=== PATIENT | female | born 1990 | race Caucasian/White ===

== ENCOUNTER → 2018-04-04 10:20 | Outpatient (CLI) | payer MEDICAID, SELFPAY ==
[2018-04-04 14:14] LABS: hCG Titer Quant., Serum 864 mIU/mL (<9 non-preg)
[2018-04-04 16:55] LABS: Chlamydia Trachomatis by PCR Negative (Negative); Neisserai gonorrhoeae by PCR Negative (Negative); Probe Check PASS; Sample Adequacy Control PASS; Specimen Processing Control PASS
[2018-04-11 09:37] LABS: HPV HC, High Risk Negative (Negative); HPV Reflexed? YES, CHARGE PATIENT
== END ==
PROVIDERS: Visit Provider Obstetrics & Gynecology
DX: Z32.01 Encounter for pregnancy test, result positive (principal); Z11.3 Encounter for screening for infections with a predominantly sexual mode of transmission; Z12.4 Encounter for screening for malignant neoplasm of cervix
CPT/HCPCS: 36415; 84702; 87491; 87591; 87624; 88175; G0145

== ENCOUNTER → 2018-04-07 09:56 | Outpatient (CLI) | payer MEDICAID, SELFPAY ==
[2018-04-07 15:42] LABS: hCG Titer Quant., Serum 2545 mIU/mL (<9 non-preg)
== END ==
PROVIDERS: Visit Provider Obstetrics & Gynecology
DX: Z32.01 Encounter for pregnancy test, result positive (principal)
CPT/HCPCS: 36415; 84702

== ENCOUNTER → 2018-04-19 10:25 | Outpatient (CLI) | payer MEDICAID, SELFPAY ==
[2018-04-19 12:33] LABS: Absolute Lymphocyte Count 1.85 X10^3/ul (0.83-4.51); Absolute Neutrophil Count 5.8 X10^3/uL (2.0-7.7); Basophil# 0.01 X10^3/uL; Basophil% 0.1 % (0-1); Eosinophil# 0.05 X10^3/uL; Eosinophils% 0.6 % (0-5); Hematocrit 39.3 % (37-47); Hemoglobin 12.9 g/dl (12.0-15.0); Lymphocyte # 1.85 X10^3/ul (4.0); Lymphocyte % 22.1 % (19-41); Mean Corp Hgb Conc 32.8 g/gl (32-36); Mean Corpuscular Hgb 30.6 pg (27.0-32.0); Mean Corpuscular Volume 93.3 fL (81-99); Monocyte% 7.2 % (0-10); Neutrophil # 5.84 X10^3/uL (2.7-7.7); Neutrophil % 69.8 % (47-70); Platelet Count 256 K/mm3 (150-450); RBC Distribution Width CV 12.1 % (11.6-14.6); RBC Distribution Width SD 40.6 fl (35.1-43.9); Red Blood Count 4.21 M/mm3 (4.2-5.4); White Blood Count 8.4 K/mm3 (4.4-11.0)
[2018-04-19 12:37] LABS: Amphetamine Urine VISTA NEGATIVE (<1000 ng/mL); Barbiturate Urine VISTA NEGATIVE (< 200 ng/mL); Benzodiazepine Urine VISTA NEGATIVE (< 200 ng/mL); Cocaine Urine VISTA NEGATIVE (< 300 ng/mL); Ecstacy Urine VISTA NEGATIVE (< 500 ng/mL); Methadone Urine VISTA NEGATIVE (< 300 ng/mL); PCP Urine VISTA NEGATIVE (< 25 ng/mL); THC Urine VISTA NEGATIVE (< 50 ng/mL); Vista UDS pH Range 6
[2018-04-19 12:38] LABS: Color, Urine Yellow (Yellow); Glucose, Dipstick Normal (Normal); Ketone-Dipstick Negative (Negative); Leukocyte Esterase-Dipstick 25 /ul (Negative); Nitrite-Dipstick Negative (Negative); Occult Blood-Urine 50 /ul (Negative); Protein-Dipstick Negative (Negative); Urine Bilirubin Dipstick Negative (Negative); Urine Clarity Sl. Cloudy (Clear); Urine Urobilinogen Normal (Normal)
[2018-04-19 12:40] LABS: POSITIVE COUNT NO; POSITIVE DIFFERENTIAL NO; POSITIVE MORPHOLOGY NO
[2018-04-19 12:45] LABS: COTININE Drug Screen Positive (<200 ng/mL)
[2018-04-19 12:59] LABS: Thyroid Stim Hormone (TSH) 0.79 uIU/mL (0.358-3.74)
[2018-04-19 13:36] LABS: HIV - WCH Non-Reactive (Nonreactive); Rubella IgG 5.2 IU/mL
[2018-04-21 02:03] LABS: Prenatal RPR NONREACTIVE (NONREACTIVE)
[2018-04-24 16:17] LABS: HEPATITIS B SURFACE AG Negative (Negative); Hep C Antibodies <0.1 s/co ratio (0.0-0.9); V-Zoster IgG (Immunity) 170 index (Immune >165)
== END ==
PROVIDERS: Visit Provider Obstetrics & Gynecology
DX: Z34.81 Encounter for supervision of other normal pregnancy, first trimester (principal)
CPT/HCPCS: 36415; 80307; 81002; 84443; 85025; 86703; 86762; 86787; 86803; 87340

== ENCOUNTER → 2018-09-13 | Outpatient (CLI) | payer MEDICAID, SELFPAY ==
[2018-09-13 10:46] LABS: Hematocrit 34.4 % (37-47); Hemoglobin 11.4 g/dl (12.0-15.0); Mean Corp Hgb Conc 33.1 g/gl (32-36); Mean Corpuscular Hgb 29.7 pg (27.0-32.0); Mean Corpuscular Volume 89.6 fL (81-99); Mean Platelet Vol. 11.9 fl (6.2-12.0); Platelet Count 209 K/mm3 (150-450); RBC Distribution Width CV 13.8 % (11.6-14.6); RBC Distribution Width SD 44.7 fl (35.1-43.9); Red Blood Count 3.84 M/mm3 (4.2-5.4); White Blood Count 9.7 K/mm3 (4.4-11.0)
[2018-09-13 10:48] LABS: Glucose Challenge Gest 1H 50g 93 mg/dL (70-140)
[2018-09-13 11:05] LABS: Scan Indicated on CBC? Y/N NO
== END | disposition home or self-care (01) ==
PROVIDERS: Visit Provider Obstetrics & Gynecology
DX: Z34.82 Encounter for supervision of other normal pregnancy, second trimester (principal)
CPT/HCPCS: 36415; 82950; 85027

== ENCOUNTER 2018-10-25 18:05 | Emergency (ER) | payer MEDICAID, SELFPAY ==
[2018-10-25 18:05] VITALS: BP 121/73; PULSE 103; RESP 16; TEMP 36.6; O2SAT 97; BMI 34.0
--- NOTE | 2018-10-25 18:48 | CT_ITS ---
STUDY: CTA NECK WITH CONTRAST REASON FOR EXAM: Female, 28 years old. Right-sided jaw pain. RADIATION DOSAGE (If Supplied By Facility): CTDIvol = ( 32.24 ) mGy, DLP = ( 1432.13 ) mGycm TECHNIQUE: CT angiography with multi-detector data acquisition was performed from the aortic arch to the skull base following intravenous administration of 75ML IV Isovue 370. MIP images were reconstructed from the axial data set. Post-processing of the angiographic images was performed, with multiplanar reformation and 3D reconstruction. Individualized dose optimization techniques were used for this CT. COMPARISON: None. FINDINGS: AORTIC ARCH: Normal visualized aortic arch. Normal origins of the brachiocephalic, left common carotid, and left subclavian arteries. RIGHT CAROTID ARTERIES: Normal right common carotid artery (CCA). Normal right common carotid bulb. Normal origin of the right internal carotid (ICA) artery without a hemodynamically significant stenosis. Normal visualized cervical portion of the right internal carotid artery. Normal origin of the right external carotid artery (ECA). LEFT CAROTID ARTERIES: Normal left common carotid artery (CCA). Normal left common carotid bulb. Normal origin of the left internal carotid (ICA) artery without a hemodynamically significant stenosis. Normal visualized cervical portion of the left internal carotid artery. Normal origin of the left external carotid artery (ECA). VERTEBRAL ARTERIES: Normal bilateral vertebral arteries. There is partial opacification of the right maxillary sinus. There is opacification of the sphenoid sinuses, more pronounced on the right. There is partial opacification of the visualized ethmoid sinuses. CT/CTA Neck W/WO Contrast IMPRESSION: Within normal limits bilateral cervical carotid and vertebral arteries. Partial opacification of the right maxillary, sphenoid and ethmoid sinuses, most pronounced within the right sphenoid sinus consistent with a history of sinusitis. Electronically Signed: Lizzy Crowe MD at 19:52 EDT Tel , Service support ,
--- NOTE | 2018-10-25 18:48 | CT_ITS ---
STUDY: CTA OF THE BRAIN REASON FOR EXAM: Female, 28 years old. Headache x3 days, right-sided jaw pain. RADIATION DOSAGE (If Supplied By Facility): CTDIvol = ( 32.24 ) mGy, DLP = ( 1432.13 ) mGycm TECHNIQUE: CT angiography was performed with a multi-detector CT scanner. Data acquisition was obtained from the skull base through the vertex following intravenous administration of 75ML IV Isovue 370. MIP images were reconstructed from the axial data set. Post-processing of the angiographic images was performed, with multiplanar reformation and 3D reconstruction. Individualized dose optimization techniques were used for this CT. COMPARISON: None. FINDINGS: Normal bilateral petrous carotid arteries. Normal right cavernous carotid artery with a normal supraclinoid bifurcation. Normal left cavernous carotid artery with a normal supraclinoid bifurcation. Normal A1 segment of the right anterior cerebral artery. Normal A1 segment of the left anterior cerebral artery. Normal intact anterior communicating artery (ACOM). Normal bilateral A2 segments of the anterior cerebral arteries. Normal M1 and M2 segments of the right middle cerebral artery, with a normal M1 bifurcation. Normal M1 and M2 segments of the left middle cerebral artery, with a normal M1 bifurcation. Normal right posterior communicating artery (PCOM). Normal left posterior communicating artery (PCOM). Normal bilateral vertebral arteries. Normal basilar artery with a normal basilar bifurcation. The visualized bilateral superior cerebellar (SCA) arteries are normal. Normal P1, P2 and visualized P3 segments of the bilateral posterior cerebral arteries. There is no demonstrated aneurysm of the [place]. There is no demonstrated abnormality of the visualized brain. CT/CTA Head W/WO Contrast IMPRESSION: Normal [place] without a demonstrated aneurysm or hemodynamically significant stenosis. Electronically Signed: Gerson Baze MD at 20:05 EDT , Service support ,
[2018-10-25 19:07] LABS: Mucous, Urine 0 SEEN /hpf (<or=2+); Red Blood Cells-Urine 0 SEEN /hpf (0-5); White Blood Cells 0 SEEN /hpf (0-5)
[2018-10-25 19:15] LABS: Color, Urine Yellow (Yellow); Glucose, Dipstick Normal (Normal); Ketone-Dipstick Negative (Negative); Leukocyte Esterase-Dipstick Negative /ul (Negative); Nitrite-Dipstick Negative (Negative); Occult Blood-Urine Negative /ul (Negative); Protein-Dipstick Negative (Negative); Urine Bilirubin Dipstick Negative (Negative); Urine Clarity Clear (Clear); Urine Urobilinogen Normal (Normal)
[2018-10-25] MEDS: 0.9% Normal Saline 1,000 ML 1000 ML IV (19:16)
[2018-10-25] MEDS: DiphenhydrAMINE 50 MG/ML Syringe 25 MG IV (19:17)
[2018-10-25] MEDS: Metoclopramide 10 MG/2 ML Vial IV (19:17)
[2018-10-25 19:23] LABS: Bacteria RARE /hpf (None Seen); Squamous Epithelial Cells - UA 0-5 SEEN /hpf (5-10)
[2018-10-25 19:24] LABS: Absolute Lymphocyte Count 2.12 X10^3/ul (0.83-4.51); Absolute Neutrophil Count 8.4 X10^3/uL (2.0-7.7); Basophil# 0.01 X10^3/uL; Basophil% 0.1 % (0-1); Eosinophil# 0.04 X10^3/uL; Eosinophils% 0.3 % (0-5); Hematocrit 38.6 % (37-47); Hemoglobin 12.5 g/dl (12.0-15.0); Lymphocyte # 2.12 X10^3/ul (4.0); Lymphocyte % 18.5 % (19-41); Mean Corp Hgb Conc 32.4 g/gl (32-36); Mean Corpuscular Hgb 28.5 pg (27.0-32.0); Mean Corpuscular Volume 87.9 fL (81-99); Mean Platelet Vol. 12.3 fl (6.2-12.0); Monocyte# 0.89 X10^3/uL; Monocyte% 7.8 % (0-10); Neutrophil # 8.37 X10^3/uL (2.7-7.7); Platelet Count 191 K/mm3 (150-450); RBC Distribution Width CV 13.7 % (11.6-14.6); RBC Distribution Width SD 43.1 fl (35.1-43.9); Red Blood Count 4.39 M/mm3 (4.2-5.4); White Blood Count 11.5 K/mm3 (4.4-11.0)
[2018-10-25 19:27] LABS: POSITIVE COUNT NO; POSITIVE DIFFERENTIAL NO; POSITIVE MORPHOLOGY NO
[2018-10-25 19:40] LABS: Anion Gap 8 (5-15); BUN 6 mg/dL (7-18); BUN/Creat Ratio 11.2 RATIO (10-20); Calcium,Total 8.5 mg/dL (8.5-10.1); Chloride 105 mmol/L (98-107); Creatinine, Serum 0.54 mg/dL (0.55-1.02); EST Glomerular Filtration Rate 146 mL/min (>60); Est Glom Filt Rate - Afr Amer 176 mL/min (>60); Glucose 86 mg/dL (74-106); Potassium 3.6 mmol/L (3.5-5.1); Sodium Level 138 mmol/L (136-145)
[2018-10-25 20:49] VITALS: BP 111/68; PULSE 81; RESP 16; O2SAT 98
--- NOTE | 2018-10-25 21:15 | ED.RN ---
NEUROLOGY PAGED FOR DR WHITE
--- NOTE | 2018-10-25 21:31 | MRI_ITS ---
HISTORY: SEVERE MENDEZ x 3 days, 33 weeks EXAMINATION: MRV Head W/O Contrast TECHNIQUE: Routine non-contrast Bzqy-qn-nyeqal MRV angiogram protocol was performed without gadolinium. 3D reconstructions were obtained. IV Contrast dosage and agent: None. COMPARISON: CTA brain 10/25/2018 FINDINGS: Normal flow related signal within the dural venous sinuses. Normal patency of the sinuses and normal bilateral jugular drainage MRI/MRV Head Without Contrast IMPRESSION: Normal examination. No evidence of dural sinus thrombosis. at 0103 Reported and signed by: Ranjeet Cope MD Electronically Signed: Ranjeet Cope, at 1:02 EDT Tel , Service support ,
--- NOTE | 2018-10-25 21:33 | ED.VISSUMM ---
- ER Visit Summary Date of Service: 10/25/18 Chief Complaint: [Headache] History of Present Illness: The patient is a 28 F [presents the emergency room with complaint of a headache that started 3 days ago. Patient states the headache came on suddenly. She rates it a 10 out of 10. She is had nausea but no vomiting. Yesterday she had a stiff neck and had a hard time moving her neck around. Today the neck is feeling better. Patient also states at times her right jaw hurts. Patient is 33 weeks . She denies any fever or recent illness. She denies urinary symptoms. Patient was seen by nursing staff and her PER ASSESSMENT NURSE's office yesterday and they checked the baby and they have all seemed fine. Patient is still feeling the baby move. She denies any swelling in her legs out of the ordinary. She denies any visual changes. She has not had photophobia. Loud sounds do bother her. She does not have a history of headaches or migraines. No medical history otherwise.] Physical Examination: [HEENT-PERRLA, EOMI. Cranial nerves II through XII grossly intact. TMs clear. Mucous membranes moist. No adenopathy. Cardiovascular-regular rate and rhythm without murmur or ectopy Lungs-clear to auscultation, chest wall stable without crepitus or subcu emphysema Abdomen-normoactive bowel sounds, soft, nontender, no rebound or rigidity, no peritoneal signs. Neuro rbgm-okckwp-mdky and heel dawson testing within normal limits, negative Romberg, negative pronator drift, fundi benign Extremities-intact ?4, normal range of motion, normal pulses, atraumatic] Test Results: [CBC with it was normal. Chemistries were normal. Urinalysis was normal. Negative for protein. CTA of the head and neck were normal.] Emergency Department Course and Treatment: [Patient was given a liter normal same fluid bolus and was medicated with Reglan and Benadryl. Symptoms improved and now rates her pain a 5 out of 10. I discussed case with neurology Dr. Lee Fu and it is felt that patient should have an MRV to evaluate for dural venous sinus thrombosis. Patient would prefer to do this as an outpatient rather than be admitted tonight. I also discussed case with Dr. Silvestre who is on for Dr. Jimenez. Patient will be given a few [place] for pain tonight. Patient will be given a prescription to have an MRV of the brain done tomorrow.] Treatment Plan: [MRV to be done tomorrow. Follow-up with PER ASSESSMENT NURSE within next 3 to 5 days.] Disposition: [Discharged home in stable condition] Impression: [Cephalgia] This note was generated with [employer] dictation software. It may contain incorrect words, spelling, and punctuation that were not noted in review of the chart prior to signing ED Disposition - Plan for ED Patient: Referrals: Care Physician,No Primary [Primary Care Provider] -
--- NOTE | 2018-10-25 21:36 | ED.DCSUM_ITS ---
- ER Visit Summary Date of Service: 10/25/18 Chief Complaint: [Headache] History of Present Illness: The patient is a 28 F [presents the emergency room with complaint of a headache that started 3 days ago. Patient states the headache came on suddenly. She rates it a 10 out of 10. She is had nausea but no vomiting. Yesterday she had a stiff neck and had a hard time moving her neck around. Today the neck is feeling better. Patient also states at times her right jaw hurts. Patient is 33 weeks . She denies any fever or recent illness. She denies urinary symptoms. Patient was seen by nursing staff and her EDGER HAND's office yesterday and they checked the baby and they have all seemed fine. Patient is still feeling the baby move. She denies any swelling in her legs out of the ordinary. She denies any visual changes. She has not had photophobia. Loud sounds do bother her. She does not have a history of headaches or migraines. No medical history otherwise.] Physical Examination: [HEENT-PERRLA, EOMI. Cranial nerves II through XII grossly intact. TMs clear. Mucous membranes moist. No adenopathy. Cardiovascular-regular rate and rhythm without murmur or ectopy Lungs-clear to auscultation, chest wall stable without crepitus or subcu emphysema Abdomen-normoactive bowel sounds, soft, nontender, no rebound or rigidity, no peritoneal signs. Neuro uqxh-axcbyv-sxuz and heel dawson testing within normal limits, negative Romberg, negative pronator drift, fundi benign Extremities-intact ?4, normal range of motion, normal pulses, atraumatic] Test Results: [CBC with it was normal. Chemistries were normal. Urinalysis was normal. Negative for protein. CTA of the head and neck were normal.] Emergency Department Course and Treatment: [Patient was given a liter normal same fluid bolus and was medicated with Reglan and Benadryl. Symptoms improved and now rates her pain a 5 out of 10. I discussed case with neurology Dr. Lee Fu and it is felt that patient should have an MRV to evaluate for dural venous sinus thrombosis. Patient would prefer to do this as an outpatient rather than be admitted tonight. I also discussed case with Dr. Silvestre who is on for Dr. Jimenez. Patient will be given a few [place] for pain tonight. Patient will be given a prescription to have an MRV of the brain done tomorrow.] Treatment Plan: [MRV to be done tomorrow. Follow-up with EDGER HAND within next 3 to 5 days.] Disposition: [Discharged home in stable condition] Impression: [Cephalgia] This note was generated with [employer] dictation software. It may contain incorrect words, spelling, and punctuation that were not noted in review of the chart prior to signing ED Disposition - Plan for ED Patient: Referrals: Care Physician,No Primary [Primary Care Provider] -
--- NOTE | 2018-10-25 21:36 | ED.DEP ---
ED Disposition - Plan for ED Patient: Instructions: ED Cephalgia Unspecified Referrals: Care Physician,No Primary [Primary Care Provider] - Rahul Jimenez MD [STAFF PHYSICIAN] - 3-5 Days
[2018-10-25 23:35] VITALS: BP 115/52; PULSE 84; RESP 18; O2SAT 98
--- NOTE | 2018-10-26 00:02 | ED.DEP ---
ED Disposition - Plan for ED Patient: Instructions: ED Cephalgia Unspecified Referrals: Rahul Jimenez MD [STAFF PHYSICIAN] - 3-5 Days Care Physician,No Primary [Primary Care Provider] - Lee Fu MD [STAFF PHYSICIAN] - 3-5 Days
[2018-10-26] MEDS: HYDROcodone Bitartrate/Apap 5/325 Tablet PO (01:34)
[2018-10-26 01:37] VITALS: BP 110/71; PULSE 61; RESP 17; O2SAT 99
== END 2018-10-26 01:38 | disposition home or self-care (01) ==
PROVIDERS: Emergency Provider Emergency Medicine
DX: O26.893 Other specified pregnancy related conditions, third trimester (principal); R51 Headache; Z3A.33 33 weeks gestation of pregnancy
CPT/HCPCS: 70496; 70498; 70544; 80048; 81001; 85025; 96361; 96374; 96375; 99283; J7030; A4216

== ENCOUNTER 2018-10-28 10:47 | Emergency (ER) | payer MEDICAID, SELFPAY ==
[2018-10-28 10:48] VITALS: BP 111/66; PULSE 94; RESP 14; TEMP 36.6; O2SAT 97; BMI 33.6
--- NOTE | 2018-10-28 11:08 | ED.VISSUMM ---
- ER Visit Summary Date of Service: 10/28/18 Chief Complaint: Headache History of Present Illness: The patient is a 28 F presenting with headache. Patient states this started approximately 5 days ago. She woke up with a headache. At that time she woke up with right-sided neck pain and right-sided headache. She states the neck pain has now resolved. She was seen in the ED 2 days ago. At that time she had a CTA of her head and neck as well as an MRV which were normal. She is currently 34 weeks . She denies vaginal bleeding or abdominal cramping. She has taken Tylenol at home. She denies vision changes. Denies leg swelling. Denies nausea or vomiting. Denies fever. Denies other complaints. Physical Examination: Vitals are stable. Blood pressure 111/66. Patient is afebrile. Alert no acute distress. HEENT exam is unremarkable. Neck is supple. No meningismus Lungs are clear and equal bilaterally. Heart is regular rate and rhythm. Abdomen is soft nontender nondistended. Extremities are unremarkable. Skin is warm and dry. No focal neurologic deficit. Remainder of exam is unremarkable. Emergency Department Course and Treatment: FHT 145. Patient was given Reglan, Benadryl IV with much improvement. Images were reviewed from 10/25/2018. It did show partial opacification of the right maxillary, sphenoid and ethmoid sinuses, most pronounced within the right sphenoid sinus consistent with a history of sinusitis. Patient states she has had intermittent symptoms of sinusitis over the past month. She is given Augmentin and a prescription for Augmentin. Discussed with Dr. Silvestre covering for Dr. Jimenez. She is also given Benadryl and Reglan for home. She is advised to follow-up with her MAILMASTER. Advised return ED if worsening complaints. Disposition: Discharge home Impression: Headache, sinusitis This note was generated with [employer] dictation software. It may contain incorrect words, spelling, and punctuation that were not noted in review of the chart prior to signing ED Disposition - Plan for ED Patient: Instructions: ED Cephalgia Unspecified Prescriptions: Amox/Clavulanate Tablet [Augmentin Tablet] 875 mg PO Q12H #20 tablet DiphenhydrAMINE [Benadryl] 25 mg PO TID PRN PRN #20 capsule PRN Reason: Headache Metoclopramide [Reglan] 10 mg PO TID PRN #20 tablet PRN Reason: Headache Referrals: Rahul Jimenez MD [STAFF PHYSICIAN] -
[2018-10-28] MEDS: 0.9% Normal Saline 1,000 ML 999 ML IV (11:13)
[2018-10-28] MEDS: DiphenhydrAMINE 50 MG/ML Syringe 25 MG IV (11:13)
[2018-10-28] MEDS: Metoclopramide 10 MG/2 ML Vial 5 MG IV (11:14)
--- NOTE | 2018-10-28 12:04 | ED.DEP ---
ED Disposition - Plan for ED Patient: Instructions: ED Cephalgia Unspecified Prescriptions: Amox/Clavulanate Tablet [Augmentin Tablet] 875 mg PO Q12H #20 tablet DiphenhydrAMINE [Benadryl] 25 mg PO TID PRN PRN #20 capsule PRN Reason: Headache Metoclopramide [Reglan] 10 mg PO TID PRN #20 tablet PRN Reason: Headache Referrals: Rahul Jimenez MD [STAFF PHYSICIAN] -
[2018-10-28] MEDS: Amox/Clavulanate 875 MG Tablet PO (12:32)
[2018-10-28 12:37] VITALS: BP 112/71; PULSE 69; RESP 16; O2SAT 99
== END 2018-10-28 12:37 | disposition home or self-care (01) ==
PROVIDERS: Emergency Provider Emergency Medicine
DX: O99.513 Diseases of the respiratory system complicating pregnancy, third trimester (principal); R51 Headache; J32.0 Chronic maxillary sinusitis; J32.3 Chronic sphenoidal sinusitis; J32.2 Chronic ethmoidal sinusitis; Z3A.34 34 weeks gestation of pregnancy
CPT/HCPCS: 96361; 96374; 96375; 99284; J7030; A4216

== ENCOUNTER → 2018-11-08 | Outpatient (CLI) | payer MEDICAID, SELFPAY ==
[2018-10-28 10:48] VITALS: BMI 33.6
== END | disposition home or self-care (01) ==
LOC: LABSPEC 15:46
PROVIDERS: Visit Provider Obstetrics & Gynecology
DX: Z36.85 Encounter for antenatal screening for Streptococcus B (principal)
CPT/HCPCS: 87081

== ENCOUNTER 2018-12-01 09:00 | Inpatient (IN) | payer MEDICAID, SELFPAY ==
[2018-12-01] VITALS (17 sets, daily range): BP systolic 98–146; BP diastolic 39–70; PULSE 60–100; RESP 16–17; TEMP 36–36.7; O2SAT 98–100; BMI 35.2
--- NOTE | 2018-12-01 08:01 | PCM.HPOB.BLA ---
History and Physical Date of Admission: 12/01/18 OB HISTORY AND PHYSICAL EXAMINATION History of this : 28 yo female Ab0 with EDC 12/08/2018 by 6 weeks 5 days Ultrasound, presents to Labor and Delivery for scheduled repeat C section and bilateral partial salpingectomy. care remarkable for - 1.) Rubella equivocal, 2.) Uncertain immunity to chickenpox, 3.) Prior C/S Plans repeat 4. Sterilization request. Plans BILATERAL TUBAL LIGATION Pertinent Past Medical History: none. Allergies: No Known Allergies Medications: During - Tablet 28 mg iron-800 mcg; Colace 100 mg capsule; Zofran 4 mg tablet; amoxicillin 500 mg tablet; ferrous gluconate 324 mg (37.5 mg iron) tablet Review of Systems: Non-contributory PHYSICAL EXAMINATION General Appearance: 28 yo female in no acute distress Vital Signs: AF, VSS Heart: RRR without rubs or gallops Lungs: CTA x 2 Breasts: deferred Abdomen: gravid Pelvis: Cervix: DEFERRED Presentation: cephalic Station: Fetus: Size: AGA Movement: present Heart: present Impression /Plan: Intrauterine . 39 wk EGA with history of prior C section for failure to progress beyond 8 cm. Plans repeat C section and bilateral tubal ligation/ partial salpingectomy. Admit for Repeat C section and bilateral partial salpingectomy. See Progress Notes for Changes: Physician's Signature: Date: NO CHANGES SINCE THIS H and P was generated 12/01/18 2314 MD ERIBERTO
[2018-12-01] MEDS: Lactated Ringers 1,000 ML 999 ML IV (09:22)
[2018-12-01 09:56] LABS: Absolute Lymphocyte Count 1.79 X10^3/ul (0.83-4.51); Basophil# 0.01 X10^3/uL; Basophil% 0.1 % (0-1); Eosinophil# 0.05 X10^3/uL; Eosinophils% 0.6 % (0-5); Hematocrit 38.5 % (37-47); Hemoglobin 12.9 g/dl (12.0-15.0); Lymphocyte # 1.79 X10^3/ul (4.0); Lymphocyte % 21.6 % (19-41); Mean Corp Hgb Conc 33.5 g/gl (32-36); Mean Corpuscular Hgb 29.3 pg (27.0-32.0); Mean Corpuscular Volume 87.3 fL (81-99); Mean Platelet Vol. 12.6 fl (6.2-12.0); Monocyte# 0.46 X10^3/uL; Monocyte% 5.5 % (0-10); Neutrophil # 5.97 X10^3/uL (2.7-7.7); Platelet Count 167 K/mm3 (150-450); RBC Distribution Width CV 13.7 % (11.6-14.6); RBC Distribution Width SD 43.8 fl (35.1-43.9); Red Blood Count 4.41 M/mm3 (4.2-5.4); White Blood Count 8.3 K/mm3 (4.4-11.0)
[2018-12-01 10:00] LABS: Prothrombin Time (Protime)PT. 13.4 SECONDS (11.7-14.9)
[2018-12-01] MEDS: Lactated Ringers 1,000 ML 150 ML IV (10:00)
[2018-12-01 10:01] LABS: POSITIVE COUNT NO; POSITIVE DIFFERENTIAL NO; POSITIVE MORPHOLOGY NO; Partial Thromboplast Time 29.8 Seconds (24.1-36.2)
--- NOTE | 2018-12-01 11:30 | FALS_PTH ---
PATIENT: SUE SHAFER LOC: [facility] U#:[id number] AGE/SX: 28/F ROOM: WP004 RE12/01/[address]: Dr. Margarita Man MD : 1990 BED: 1 DIS: 12/03/2018 SPEC #: [id number] RECD: 12/01/18 16:00 STATUS: FERNIE ZAY #: [id number] TORRES: 12/01/18 11:[address]: Margarita Man DEPT: SURGICAL PATHOLOGY RECD BY: Shayla Rodriguez ENTERED: 12/04/18 14:38 SP TYPE: FALL TUBES OTHR DR: No Primary Care Phys Tissues: Fallopian tube Procedures: Surgery Specimen Level II HEADER OPERATION: Tubal ligation PRE-OP DIAGNOSIS: Sterilization request TISSUE SUBMITTED: Fallopian tubes MICROSCOPIC DIAGNOSIS Right and left fallopian tubes, bilateral partial salpingectomies: Two complete segments of fallopian tubes with no pathologic change. AM:sylvie 12/05/18 MICROSCOPIC DESCRIPTION Slides are reviewed. GROSS DESCRIPTION Received is one container labeled with the patient's name and designated bilateral fallopian tubes, stitch right. The specimen consists of two tubular pieces of byrnes soft tissue with the right identified with a suture. The right fallopian tube measures 1.2 cm in length and 0.5 cm in diameter. The left fallopian tube measures 3 cm in length and 1.2 cm in diameter. The fimbrial end is identified in this tube. The left tube is serially sectioned. The right tube will be sectioned at the time of embedding. The entire specimen is submitted in two cassettes as follows: 1 - right fallopian tube, 2 - left fallopian tube. / SJ:sylvie 12/04/18 TC:4 CPT: 58608 x2
[2018-12-01] MEDS: Sodium Citrate/Citric Acid 30 ML UDC PO (12:05)
[2018-12-01] MEDS: Cefazolin 2 GM in 0.9% Normal Saline 100 ML IV (12:08)
[2018-12-01] MEDS: Oxytocin 30 units/NS 500 ml 30 UNITS/500 ML IV.SOLN 167 UNITS IV (12:38)
[2018-12-01] MEDS: Lactated Ringers 1,000 ML 100 ML IV ×2 (13:55→18:45)
[2018-12-01 14:39] LABS: Pathology Specimen OB SEE PATHOLOGY REPORT
--- NOTE | 2018-12-01 17:38 | OP.PCM_ITS ---
Report of Operation Date of Procedure: 12/01/18 Pre-Operative Diagnosis: 39 wk EGA prior C/S planned repeat C/S. Steril ization request Post-Operative Diagnosis: same Surgery/Procedure Performed:: Repeat C/S and bilateral partial salpingectomy (R partial salpingectomy, and L distal salpingectomy) universal banker: Cesilia Chen Type of Anesthesia:: Spinal Anesthesiologist: Shante Li - INSTRUCTIONAL COACH Specimen's removed: placenta, B tubal segments Drains: Kaplan - Complications None - Admit VTE Documentation VTE Present on Admission: No VTE Mechan Device Prophylaxis: SCD's Delivery Classification: Scheduled Final LOS: 12/08/18 Final LOS Source: US <20 weeks Gestational age: 39 Weeks and 0 Days Indications: Prior C/s planned repeat C/S. Sterilization request Indications for : Repeat Elective , Desires elective sterilization Description of Procedure: Findings: At amniotomy, clear fluid was noted. Wallace viable male in vertex presentation. Apgars 9/9, Baby weight: 7# 12 oz There was a normal appeari ng uterus, fallopian tubes and ovaries bilaterally. There were minimal filmy adhesions between the bladder and lower uterine segment. PATH: bilateral fallopian tube segments Narrative account: After the risks, benefits and alternatives of the procedure were reviewed with the patient, informed consent was obtained. The patient was taken to the Operating room with an IV running, and placed in a seated position on the operating table for placement of the spinal. Once the spinal had been administered, she was briefly frog-legged for Kaplan catheter placement, and then repositioned to dorsal supine position with leftward displacement of the uterus, and prepped and draped in the usual sterile fashion. Once the spinal was deemed adequate, a Pfannenstiel skin incision was created using the knife (through the prior skin incision scar). The incision was carried down to the rectus fascia using the knife. The fascia was nicked in the midline. The fascial incision was extended bilaterally using curved [place] scissors. The superior aspect of the fascial incision was grasped with Johan clamps and tented up and the underlying rectus abdominal muscles were dissected free. In a similar manner, the inferior aspect of the facial incision was grasped with Johan clamps tented up and the underlying rectus abdominal muscles were dissected free. The rectus abdominis muscles were in the midline and the peritoneum was identified and entered by blunt dissection high in the incision. The peritoneum was stretched laterally and a bladder blade was inserted. A bladder flap was created along the lower uterine segment with Metzenbaum scissors . The uterine incision was then created using Metzenbaum scissors. The operators fingertips were used to extend the uterine incision by blunt dissection in a caudad- cephalad orientation . Clear fluid was noted at amniotomy. The vertex was then delivered atraumatically through the incision. The OP and nares were bulb suctioned on the abdomen. The shoulders delivered easily . The cord clamped x two and cut. And the infant was handed off to the nurse awaiting delivery after briefly showing him to his parents. The baby had a spontaneous, vigorous cry. The placenta was then delivered. The uterus was exteriorized and cleared of clots and debris . The uterine incision was repaired with 1 Vicryl in a running locked fashion. A second imbricating layer was then placed, using 1 Monocryl in running nonlocked fashion. Bovie cautery was used to treat any bleeding areas . Excellent hemostasis was noted. Attention was then turned to the bilateral partial salpingectomy. The right fallopian tube was grasped at a relatively avascular midportion and a [place] clamp was used to tent the tube up. A defect was created in the mesosalpinx using Bovie cautery. The proximal and distal ends of the fallopian tube were tied with a 2-0 catgut. A knuckle of the tube was then tied off inferior to these 2 ties placed prior. A segment of the left fallopian tube was then excised using Metzenbaum scissors. Bovie cautery was used at the tubal stumps to assure continued hemostasis. The tubal segment was set aside for later pathology review. Significant varicosities were noted along the mesosalpinx of the left fallopian tube, so a distal salpingectomy was performed. A hemostat w as applied across the distal left fallopian tube and the fimbriated end was excised. A free tie of 2-0 Catgut was tied proximal to the hemostat as the hemostat was flashed. A second 2-0 catgut tie was then secured in place even more proximal along the fallopian tube than the initial tie. The hemostat ws removed and Bovie cautery was used to cauterize the distal stump of the left fallopian tube. Excellent hemostasis was noted at both tubal segments. The two portions of the completely transected fallopian tubes were set aside for later pathology review. At this point the uterus was returned to the abdominal cavity. The gutters were cleared of clots and debris and the incision at the uterus was inspected. Excellent hemostasis was noted. The peritoneal edges and rectus abdominis muscles were reapproximated in the midline with a interrupted vertical mattress stitches of 1 Vicryl. Excellent hemostasis was noted at the subfascial space The fascia was closed in a running nonlocked fashion with a [employer]of[employer]. The Subcutaneous fatty tissue was Bovie cauterized as needed for hemostasis. This layer was then reapproximated in a single layer closure of running 3-0 Vicryl to eliminate space. The skin edges were closed in a Subcuticular stitch of 4-0 Monocryl. The incision was cleansed. Cavilon, Steristrips, and Mepilex dressing were applied to the skin . The patient was then transferred to the recovery room bed in stable condition after tolerating the procedure well. Sponge, lap, needle and instrument counts correct times two. Medications given preop and intraoperatively included: Ancef 2 gm were given communications scientist to the operating room. The patient also received Pitocin given IV after cord clamp, and Toradol 30 mg IV times one. Methergine 0.2 mg IM in the R thigh for mild uterine atony of the lower uterine segment without hemorrhage. For a complete listing of medications given preop and intraoperatively, please see the anesthesia record. Amniotic Membrane Rupture Type: Artificial Amniotic Fluid Description: Clear Placenta Disposition: [facility] Specimen(s) sent to pathology: tubal segments. R partial salpingectomy. L distal salpingectomy/fibriectomy Drain: Kaplan to straight drain Fluids Replaced: LR Cord Entanglement: None Cord Vessel Description: 3 Vessels Esitmated Blood Loss (ml): 800 Gender: Male (1 minute): 9 (5 minute): 9 Delayed cord clamping: No Pre-op Antibiotic Given: Ancef 2 grams IV x1 Pt instructed on risks of surgery: Bleeding, Anesthesia Risks, Infection
[2018-12-01] MEDS: Ketorolac 30 MG/ML Syringe IV (18:48)
[2018-12-01] MEDS: Acetaminophen 500 MG Tablet 1000 MG PO (20:32)
[2018-12-01] MEDS: Senna/Docusate Sodium 1 Tablet PO (20:32)
[2018-12-02] VITALS (10 sets, daily range): BP systolic 94–112; BP diastolic 28–65; PULSE 63–85; RESP 15–16; TEMP 36.2–36.6; O2SAT 98–100
[2018-12-02] MEDS: Ketorolac 30 MG/ML Syringe IV ×4 (01:33→19:51)
[2018-12-02] MEDS: 0.9% Saline Lock 10 ML Syringe IV ×3 (01:33→19:51)
[2018-12-02 06:37] LABS: Hematocrit 33.5 % (37-47); Mean Corp Hgb Conc 32.8 g/gl (32-36); Mean Corpuscular Hgb 28.9 pg (27.0-32.0); Mean Corpuscular Volume 88.2 fL (81-99); Mean Platelet Vol. 12.3 fl (6.2-12.0); Platelet Count 135 K/mm3 (150-450); RBC Distribution Width CV 13.9 % (11.6-14.6); RBC Distribution Width SD 42.9 fl (35.1-43.9); Scan Indicated on CBC? Y/N NO
--- NOTE | 2018-12-02 08:31 | PN.OBGYN_ITS ---
Subjective: POD#1 Repeat C/S and BPS Doing well. Nrusing Got up to shower and dressing at S/L got wet Will ask nurse to cahnge this. Nursing and baby up all night. Minimal pain reported. minimal bleeding. Objective: SItting up in chair nursing baby on L side. Eating breakfast. - Physical Exam General: Alert, Oriented x3, Cooperative, No apparent distress HEENT: Atraumatic Neck: Supple Abdomen: Soft - fundus firm tender c/w postop status, at inferior to umbilicus. Skin: Incision - Mepilex dressing CDI. Psych/Mental Status: Normal Affect Vital Signs Temp Pulse Resp BP Pulse Ox 97.1 F L 82 16 103/45 L 99 12/02/18 03:41 12/02/18 06:47 12/02/18 06:47 12/02/18 03:41 12/02/18 06:47 Oxygen Delivery Method Room Air Weight: 90.3 kg Body Mass Index (BMI) 35.2 Intake and Output for Last 24 Hours 11/30/18 12/01/18 12/02/18 23:59 23:59 23:59 Intake Total 3832 / 3832 1005 / 1005 Output Total 750 / 750 1250 / 1250 Balance 3082 / 3082 -245 / -245 Laboratory Tests Past 24 Hrs 12/01/18 12/01/18 12/01/18 07:30 07:30 07:30 WBC 8.3 RBC 4.41 Hgb 12.9 Hct 38.5 MCV 87.3 MCH 29.3 MCHC 33.5 RDW 13.7 RDW Differential 43.8 Plt Count 167 MPV 12.6 H Immature Gran % (Auto) 0.200 Neut % (Auto) 72.0 H Lymph % (Auto) 21.6 [place] % (Auto) 5.5 Eos % (Auto) 0.6 Baso % (Auto) 0.1 Absolute Neuts (auto) 6.0 Absolute Lymphs (auto) 1.79 Total Counted Not Reportable PT 13.4 INR 1.0 APTT 29.8 Blood Type AB POSITIVE Antibody Screen NEGATIVE 12/02/18 06:27 WBC 9.0 RBC 3.80 L Hgb 11.0 L Hct 33.5 L MCV 88.2 MCH 28.9 MCHC 32.8 RDW 13.9 RDW Differential 42.9 Plt Count 135 L MPV 12.3 H Immature Gran % (Auto) Neut % (Auto) Lymph % (Auto) [place] % (Auto) Eos % (Auto) Baso % (Auto) Absolute Neuts (auto) Absolute Lymphs (auto) Total Counted PT INR APTT Blood Type Antibody Screen Medical Necessity - Tobacco Use Smoking Status: Former smoker Assessment/Plan POD#1 repeat C/S and BPS Stable postop. Inc diet and activity as tolerated. D/C Kaplan for voiding trial. Begin po meds. IV to saline lock to continue Toradol. Continue routine care.
[2018-12-02] MEDS: Fluticasone 0.05% 1 SPRAY NASAL.SRY NASAL (10:21)
[2018-12-02] MEDS: Senna/Docusate Sodium 1 Tablet PO (10:21)
[2018-12-02] MEDS: Loratadine 10 MG Tablet PO (10:21)
--- NOTE | 2018-12-02 12:05 | DCINST_ITS ---
Discharge Diet: No Restrictions Discharge Activity: May not drive while taking narcotic pain medications., May Shower, May Take a Tub Bath May resume sexual activity in: 4-6 weeks Lifting Restrictions: 20 pounds Additional Activity Instructions:: Nothing in the vagina for 4-6 weeks. You may return to work/school in 6 weeks. Change Dressing in (Days):: 7 Remove Dressing in (days):: 7 Cleanse incision/area with: Soap & Water, Keep Dressing Clean & Dry Additional Instructions: If you experience any of the following, contact your healthcare provider. * Bleeding that soaks a pad every hour for 2 hours * Fever 100.4 or higher * Unrelieved incision or abdominal pain * Swelling, redness, discharge or bleeding from your incision * Problems urinating (including inability to urinate or burning while urinating). * Visual changes * Severe headache * Flu-like symptoms * Pain or redness in one of both of your breasts * Pain, warmth, tenderness or swelling in your legs, especially the calf area * Frequent nausea and vomiting * Symptoms of depression or anxiety If you experience any of the following, call 911 or go to the nearest Emergency Room. * Chest pain * Problems breathing * Seizure activity * Partial or complete paralysis of a body part, slurred speech, weakness or drooping of the face, or a sudden inability to walk or hold your balance Allergies/Adverse Reactions: Allergies No Known Allergies Allergy (Verified 12/01/18 09:24) Medications to take at Discharge Ferrous Gluconate 324 mg PO BID 10/25/18 148/Iron/Folate 6/Dha 1 tab PO DAILY 10/25/18 Allergy Relief 1 tab PO DAILY 12/01/18 Fluticasone 0.05% [Flonase Nasal [place]] 1 spray NARES DAILY 12/01/18 Docusate Sodium [Colace] 100 mg PO BID #30 cap 12/02/18 Naproxen [Naprosyn] 250 - 500 mg PO TID PRN PRN #30 tab 12/02/18 Oxycodone [Oxyir] 5 mg PO Q6H PRN PRN 4 Days #15 tablet 12/02/18 Polyethylene Glycol 3350 [Miralax] 17 gm PO DAILY PRN #14 packet 12/02/18 The following prescriptions were given: Docusate Sodium [Colace] 100 mg PO BID #30 cap Transmission Status: Pending to [facility] Polyethylene Glycol 3350 [Miralax] 17 gm PO DAILY PRN #14 packet PRN Reason: Constipation Transmission Status: Pending to [facility] Naproxen [Naprosyn] 250 - 500 mg PO TID PRN PRN #30 tab PRN Reason: Mild-Mod Pain (-10/06) Transmission Status: Pending to [facility] Oxycodone [Oxyir] 5 mg PO Q6H PRN PRN 4 Days #15 tablet PRN Reason: Mod-Severe Pain (-03/08) Transmission Status: Sent to [facility] Follow-Up: Call to make an appointment with your doctor for an incision check in 1-2 weeks. You will also need a 6 week post- follow up appointment. Test results from this visit will be discussed in further detail at your follow- up appointment, if applicable. Please Follow Up With: Margarita Man MD - [phone] When: Call to make an appointment for an incision check in 2 weeks. Primary Care Physician: Care Physician,No Primary [Primary Care Provider] - Proposed Discharge Date: 12/03/18
[2018-12-02] MEDS: Prenatal Vits Tablet 1 TABLET PO (13:33)
[2018-12-02] MEDS: oxyCODONE 5 MG Tablet PO (23:10)
[2018-12-03 01:05] VITALS: BP 112/62; PULSE 76; RESP 16; TEMP 36.6; O2SAT 100
[2018-12-03] MEDS: Ketorolac 30 MG/ML Syringe IV ×2 (02:09→08:37)
[2018-12-03] MEDS: 0.9% Saline Lock 10 ML Syringe IV ×2 (02:09→08:38)
--- NOTE | 2018-12-03 07:19 | PCM.PN.OB ---
Subjective: POD#2 repeat C/S and BPS Doing well. Pain control adequate. Breast feeding baby up a lot last night. - Physical Exam General: Alert, Oriented x3, Cooperative, No apparent distress HEENT: Atraumatic Neck: Supple Abdomen: Soft - Fundus firm NT at 2 cm inferior to umbilicus Skin: Incision - Mepilex dressing CDI. Psych/Mental Status: Normal Affect Vital Signs Temp Pulse Resp BP Pulse Ox 97.8 F 76 16 112/62 100 12/03/18 01:05 12/03/18 01:05 12/03/18 01:05 12/03/18 01:05 12/03/18 01:05 Oxygen Delivery Method Room Air Weight: 90.3 kg Body Mass Index (BMI) 35.2 Intake and Output for Last 24 Hours 12/01/18 12/02/18 12/03/18 23:59 23:59 23:59 Intake Total 3832 / 3832 1005 / 1005 Output Total 750 / 750 1250 / 1250 Balance 3082 / 3082 -245 / -245 Medical Necessity - Tobacco Use Smoking Status: Former smoker Assessment/Plan POD#2 repeat C/S and BPS Stable postop. dischg home today per pt request. RTO as planned for postop incision check. Reviewed care of incision and when to remove dressing.
--- NOTE | 2018-12-03 07:24 | PCM.DC.SUM ---
Discharge Date and Diagnosis Date of Admission: 12/01/18 - 39 wk planned repeat C/S, BPS Date of Discharge: 12/03/18 Hospital Course and Treatment Summary of Care Provided: The patient is a 28 year old female at 39 wk EGA presents for repeat C/S and BPS (sterilization request) on 12/01/18 Admitted for delivery. Surgery uncomplicated -- Normal anatomy noted with adhesions between bladder and lower uterine segment, filmy adhesions near L fallopian tube. R partial salpingectomy and L fimbriectomy performed. 7# 12 oz male Ap 02/05 delivered. Preop Hgb 12.9 g/dl Postop Hgb 11 g/dl Pt afeb with stable vital signs and benign exam. Incision CDI with Mepilex dressing in place. Dischg home on POD#2 . RTO for postop incision check as scheduled. - Physical Exam Vital Signs Temp Pulse Resp BP Pulse Ox 97.8 F 76 16 112/62 100 12/03/18 01:05 12/03/18 01:05 12/03/18 01:05 12/03/18 01:05 12/03/18 01:05 Oxygen Delivery Method Room Air Weight: 90.3 kg Body Mass Index (BMI) 35.2 Intake and Output for Last 24 Hours 12/01/18 12/02/18 12/03/18 23:59 23:59 23:59 Intake Total 3832 / 3832 1005 / 1005 Output Total 750 / 750 1250 / 1250 Balance 3082 / 3082 -245 / -245 Discharge Diet: No Restrictions Discharge Activity: May not drive while taking narcotic pain medications., May Shower, May Take a Tub Bath May resume sexual activity in: 4-6 weeks Additional Activity Instructions:: Nothing in the vagina for 4-6 weeks. You may return to work/school in 6 weeks. Change Dressing in (Days):: 7 Remove Dressing in (days):: 7 Cleanse incision/area with: Soap & Water, Keep Dressing Clean & Dry Home Medications: Medications to take at Discharge Ferrous Gluconate 324 mg PO BID 10/25/18 148/Iron/Folate 6/Dha 1 tab PO DAILY 10/25/18 Allergy Relief 1 tab PO DAILY 12/01/18 Fluticasone 0.05% [Flonase Nasal [place]] 1 spray NARES DAILY 12/01/18 Docusate Sodium [Colace] 100 mg PO BID #30 cap 12/02/18 Naproxen [Naprosyn] 250 - 500 mg PO TID PRN PRN #30 tab 12/02/18 Oxycodone [Oxyir] 5 mg PO Q6H PRN PRN 4 Days #15 tab 12/02/18 Polyethylene Glycol 3350 [Miralax] 17 gm PO DAILY PRN #14 packet 12/02/18 Following Prescrptions Were Given to Patient: Docusate Sodium [Colace] 100 mg PO BID #30 cap Transmission Status: Received by [facility] Polyethylene Glycol 3350 [Miralax] 17 gm PO DAILY PRN #14 packet PRN Reason: Constipation Transmission Status: Received by [facility] Naproxen [Naprosyn] 250 - 500 mg PO TID PRN PRN #30 tab PRN Reason: Mild-Mod Pain (1-510) Transmission Status: Received by [facility] Oxycodone [Oxyir] 5 mg PO Q6H PRN PRN 4 Days #15 tab PRN Reason: Mod-Severe Pain (4-10/10) Transmission Status: Received by [facility] Primary Care Physician: Care Physician,No Primary [Primary Care Provider] - Please Follow Up With: Margarita Man MD - [phone] When: Call to make an appointment for an incision check in 2 weeks. Medical Necessity - Tobacco Use Smoking Status: Former smoker Meaningful Use Info Meaningful Use Diagnoses (Choose all that apply): None applicable
[2018-12-03] MEDS: Senna/Docusate Sodium 1 Tablet PO (08:37)
[2018-12-03 08:38] VITALS: BP 101/55; PULSE 84; RESP 16; TEMP 36.4; O2SAT 99
[2018-12-03] MEDS: oxyCODONE 5 MG Tablet PO (10:56)
--- NOTE | 2018-12-07 16:35 | NURSING ---
Mother states doing well she decided to exclusively pump and is pumping 5 oz from each side. Baby taking 2 oz every 2-3 hours . Recommended articles from [employer] for exclusive pumping . Mother states visit went well and all the nurses were great.
== END 2018-12-03 11:55 | disposition home or self-care (01) | DRG 540 ==
LOC: WP 09:12
PROVIDERS: Admitting Provider Obstetrics & Gynecology; Visit Provider Obstetrics & Gynecology
PROC: 10D00Z1 Extraction of Products of Conception, Low, Open Approach (ICD-10-PCS; CPT 59514; principal; 2018-12-01 11:45)
DX: O34.211 Maternal care for low transverse scar from previous cesarean delivery (principal); O99.02 Anemia complicating childbirth; D64.9 Anemia, unspecified; Z3A.39 39 weeks gestation of pregnancy; Z37.0 Single live birth
CPT/HCPCS: 85025; 85027; 85610; 85730; 86850; 86900; 88302; 99218; J7120; A4216; G0378; J2405

== ENCOUNTER → 2019-08-02 | Outpatient (CLI) | payer MEDICAID, SELFPAY ==
[2018-12-01 09:23] VITALS: BMI 35.2
== END | disposition home or self-care (01) ==
LOC: LABSPEC 16:55
PROVIDERS: Visit Provider Obstetrics & Gynecology
DX: Z12.4 Encounter for screening for malignant neoplasm of cervix (principal)

== ENCOUNTER 2021-06-07 01:24 | Emergency (ER) | payer BC, SELFPAY ==
[2021-06-07 01:26] VITALS: BP 167/96; PULSE 131; RESP 18; TEMP 36.6; O2SAT 96; BMI 31.6
--- NOTE | 2021-06-07 01:30 | EX.ED.GENINJ ---
HPI History of Present Illness Chief Complaint: Bite Detail of Chief Complaint: Dog bite Informant: patient Onset/Context/Timing Onset: Hours Mechanism/Context: other (Dog bite to face) Location: Nose and upper lip involving the vermilion border Current Severity: Mild (Laceration of nose) Worsened by: Nothing Relieved by: Nothing Associated Symptoms Associated Symptoms: Negative for Parasthesias, Weakness, Loss of function, Inability to ambulate, Loss of consciousness and Amnesia Narrative Narrative: Patient is a 31-year-old who was bit by her dog. She is uncertain when her last tetanus shot was. She states the dog's immunizations up-to-date. There is a laceration involving the nose and upper lip. She denies any other symptoms or injuries. Tetanus Immunization: Unknown Prior similar symptoms: No Recent Illness/Hospitalization: No PFSH PFSH Medical History no medical history no medical history Home Medications amoxicillin-pot clavulanate 875 mg PO Q12H #10 tablet 06/07/21 [Rx Last Taken Unknown] Allergy/AdvReac Type Severity Reaction Status Date / Time No Known Allergies Allergy Verified 06/07/21 01:25 Family History no significant family his Surgical History no surgical history Social History (Updated 06/07/21 @ 01:[address] Uri Parra MD) household members: significant other Smoking Status: Former smoker alcohol intake: current alcohol intake frequency: other substance use type: does not use ROS ROS ED Constitutional Constitutional ED: Denies chills, fever(s), subjective or sweats Eyes Eyes: Denies blurry vision or change in vision ENT ENT ED: Reports other Details: Denies epistaxis. ; Denies ear pain, rhinorrhea or sore throat Gastrointestinal Gastrointestinal: Denies diarrhea, nausea or vomiting Musculoskeletal Musculoskeletal: Denies arthralgias, back pain, myalgias or neck pain Integumentary Reports other Details: Laceration involving nose and upper lip ; Denies abscess, Abrasions or rash Neurologic Neurologic: Denies paresthesias or weakness Hematologic/Lymphatic Hematologic/Lymphatic: Denies easy bleeding or easy bruising EXAM Physical Exam Const Vital Signs: 06/07/21 01:26 Temperature 97.9 F Temperature Source Temporal Pulse Rate 131 H Respiratory Rate 18 Blood Pressure 167/96 H Blood Pressure Mean 119 Pulse Ox 96 Oxygen Delivery Method Room Air Positive well nourished, well developed and obese General Appearance ED: well developed, NAD and other Clinically patient is intoxicated. Nutritional Appearance: obese HEENT Reports TM's clear HEENT Narrative: There is no injury to the teeth. Laceration of lip involves the vermilion portion and involves the entire vermilion portion of the upper lip on the right side. There is no clinical findings of basilar skull fracture. trauma and tenderness Nose: Negative for septum abnormal Tympanic Membrane ED: Yes TM's clear Eyes PERRL and EOMs intact bilaterally General Eye ED: Yes other Other Details: There is no subconjunctival hemorrhage. Patient does have nystagmus with lateral gaze. Neck full ROM General: tenderness Resp normal respiratory effort Cardio regular rhythm Rate: regular rate Extremity normal to inspection and full ROM Neuro oriented x3 and CN's II-XII intact bilaterally Sensorium / Orientation: alert Psych thought process normal Skin no rashes or lesions noted Wounds: wounds noted PROC Procedures Other Procedures Procedure(s): Laceration of the nose and lip was repaired. The length of the laceration involving the nose is 1.5 cm in length. The lip laceration involves the vermilion border is irregular and there is a flap. The laceration is through and through and involves the buccal surface. Patient nasal laceration was Nestabs once and lidocaine by local filtration. The upper lip laceration was anesthetized by infraorbital nerve block intraoral approach. The nasal laceration was irrigated with 100 cc of normal saline. Using 6-0 Ethilon 4 simple interrupted sutures were placed with good cosmesis and hemostasis. Patient tolerated procedure well. The lip laceration was closed using 6-0 Ethilon and 5-0 Vicryl. The first stitch was placed to approximate the vermilion border. There was a total of 6 simple erupted sutures using 6-0 Ethilon. The buccal surface was closed using 5-0 Vicryl. A total of 5 stitches were placed. Patient received Augmentin which is the drug of choice for dog bite. She states she has no allergy to penicillin or cephalosporin. MDM MDM MDM Narrative Medical decision making narrative: Tetanus was updated. Once lacerations have been closed will administer antibiotic. Patient's been informed that the laceration of the nose will require suturing to minimize scar. The upper lip laceration will need multilayer closure. Please read procedure note Discharge Plan Triage Chief Complaint: Bite ED Provider: Uri Parra Dx/Rx/DC Orders Clinical Impression: Open wound of face due to dog bite, Laceration of lip with other complication Prescriptions: New amoxicillin-pot clavulanate [amoxicillin-pot clavulanate] 875 MG tablet 875 mg PO Q12H Qty: 10 RF: 0 Primary Care Provider: Care Physician,No Primary Referrals: Himanshu Srinivasan MD [STAFF PHYSICIAN] - 2 Days for wound check (Dog bite face sutured and treated with Augmentin) Care Physician,No Primary [Primary Care Provider] - Activity Restrictions/Additional Instructions: 1. Keep wound clean and dry 2. If you're unable to be seen by Dr. Srinivasan in 2 days for wound reevaluation return to the emergency department for reevaluation 3. If there is any colored drainage or any concern that there is an infection before Tuesday return to the emergency department 4. Take Augmentin until gone 5. Apply bacitracin ointment 3 times a day 6. Have sutures removed and 5 days. The sutures that are white in color should remain in place and they will dissolve on their own. Disposition Disposition: Home, Self Care
[2021-06-07] MEDS: Diphth,Pertuss(Acell),Tet Vac 0.5 ML Vial IM (01:38)
[2021-06-07] MEDS: Lidocaine 1% (20 ml mdv) 20 ML Vial INFILT (01:39)
[2021-06-07] MEDS: Amox/Clavulanate 875 MG Tablet PO (02:33)
--- NOTE | 2021-06-07 02:35 | ED.RN ---
Patient refusing to fill out dog bite form. Patient will only state she got bit by a dog 1 hour [employer].
== END 2021-06-07 02:42 | disposition home or self-care (01) ==
PROVIDERS: Emergency Provider Emergency Medicine; Visit Provider Emergency Medicine
DX: S01.511A Laceration without foreign body of lip, initial encounter (principal); S01.21XA Laceration without foreign body of nose, initial encounter; W54.0XXA Bitten by dog, initial encounter; E66.9 Obesity, unspecified; Z68.31 Body mass index [BMI] 31.0-31.9, adult; Z87.891 Personal history of nicotine dependence
CPT/HCPCS: 12011; 12052; 90471; 90715; 99283

== ENCOUNTER 2021-09-15 02:19 | Emergency (ER) | payer OTHER, BC, SELFPAY ==
[2021-09-15 02:19] VITALS: BP 135/81; PULSE 83; RESP 14; TEMP 36.6; O2SAT 100; BMI 29.2
--- NOTE | 2021-09-15 02:37 | RAD_ITS ---
EXAM: XR RIGHT HAND COMPLETE, 3 OR MORE VIEWS CLINICAL INDICATION: injury TECHNIQUE: Frontal, lateral and oblique views of the right hand. This report was created using [employer] report generation technology. COMPARISON: None. FINDINGS: BONES/JOINTS: There is an accessory ossicle involving the second metacarpal phalangeal joint. No acute fracture. No subluxation. Normal alignment. No sclerotic or destructive changes observed. SOFT TISSUES: Unremarkable. No soft tissue swelling or gas. No radiopaque foreign body. RAD/Hand Min 3 Views IMPRESSION: No acute abnormality. Electronically Signed: Olivier Judd MD at 3:38 EDT ,
--- NOTE | 2021-09-15 03:34 | EDS_ITS ---
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 She is right-hand dominant. No prior history of right hand injury or surgery. She was working with [employer]. A piece slid and hit her right palm causing pain. She denies any other complaints. Prior similar symptoms: No Recent Illness/Hospitalization: No PFSH PFSH Medical History no medical history no medical history Home Medications amoxicillin-pot clavulanate 875 mg PO Q12H #10 tablet 06/07/21 [Rx Last Taken Unknown] Allergy/AdvReac Type Severity Reaction Status Date / Time No Known Allergies Allergy Verified 06/07/21 01:25 Social History household members: significant other Smoking Status: Current every day smoker tobacco type: cigarettes alcohol intake: current alcohol intake frequency: other substance use type: does not use ROS ROS ED ROS Narrative No recent illness. Review of Systems ROS Unobtainable: Denies due to encephalopathy Constitutional Constitutional ED: Denies fever(s) Eyes Eyes: Denies change in vision ENT ENT ED: Denies ear pain Cardiovascular Cardiovascular: Denies chest pain Respiratory/Chest Respiratory/Chest: Denies dyspnea Gastrointestinal Gastrointestinal: Denies abdominal pain, diarrhea, nausea or vomiting Genitourinary Genitourinary ED: Denies dysuria Musculoskeletal Musculoskeletal: Denies myalgias Integumentary Denies rash Neurologic Neurologic: Denies headache(s) Psychiatric Psychiatric: Denies depression Endocrine Endocrinology: Denies polyuria Hematologic/Lymphatic Hematologic/Lymphatic: Denies easy bruising Allergic/Immunologic Allergic/Immunologic ED: Denies urticaria EXAM Physical Exam Narrative Exam Narrative: 31-year-old female. Vital signs stable afebrile. No distress. H EENT exam, neck, heart, lung, abdominal exams are all normal. Moving all 4 extremities. Neurovascularly intact. Right elbow and forearm are normal. Right wrist is nontender with full range of motion. No swelling. Right hand she has mild tenderness to the palm and dorsum. There is no deformity. No lac eration. No bleeding. She has full flexion-extension all digits of the hand. Normal cap refill intact sensation. Normal range of motion. No bony deformity. Otherwise exam normal. Const Vital Signs: 09/15/21 02:19 Temperature 97.9 F Temperature Source Oral Pulse Rate 83 Respiratory Rate 14 Blood Pressure 135/81 H Blood Pressure Mean 99 Pulse Ox 100 Oxygen Delivery Method Room Air Positive well nourished and well developed; Negative for obese, cachectic, contractures or unkempt General Appearance ED: well developed and NAD; Negative for unkempt, cachectic, contractures, cyanotic or diaphoretic Nutritional Appearance: Negative for cachectic or obese HEENT Reports moist mucous membranes normocephalic and atraumatic Eyes PERRL and EOMs intact bilaterally Neck full ROM and supple General: Negative for tenderness Chest Wall inspection of chest normal and palpation of chest normal Resp normal respiratory effort and clear to auscultation bilaterally Effort and Inspection: Negative for pain with movement Auscultation: Negative for rales, rhonchi or wheezes Cardio regular rate, regular rhythm, S1 normal heart sound, S2 normal heart sound and no murmurs GI non-tender, non-distended and no masses Auscultation: normoactive bowel sounds Palpation: soft; Negative for tender or guarding Back/Spine no CVA tenderness General Back: Negative for CVA tenderness Cervical Spine: Negative for cervical spine tenderness Thoracic Spine / Upper Back: Negative for thoracic spinal tenderness Extremity normal to inspection and full ROM General Extremety ED: Negative for edema General Extremity: Negative for edema Neuro oriented x3, moves all extremities, no focal motor deficits and no sensory deficits noted Sensorium / Orientation: alert, oriented to person, oriented to place and oriented to time; Negative for orientation impaired, lethargic or stuporous Motor Exam: strength 5/5 throughout Psych mental status grossly normal Appearance: Negative for unkempt Mood & Affect: Negative for depressed or tearful Skin General Skin Exam: Negative for petechiae Lesions: no lesions Rashes: no rashes Trauma: no lacerations or abrasions; Negative for abrasion, laceration or puncture MDM MDM MDM Narrative Medical decision making narrative: 31-year-old female [id number] injured her right hand at work. Blunt trauma. X-ray obtained. 3 views interpreted by myself shows no acute abnormality. Right hand contusion. Motrin for pain. Ice and elevate. Radiography Diagnostic Testing: Right hand x-ray, 3 views, interpreted by myself shows no acute abnormality. No fracture. No dislocation. Discharge Plan Triage Chief Complaint: Upper Extremity Injury ED Provider: Dhiraj Hanks Dx/Rx/DC Orders Clinical Impression: Contusion of hand, right, Encounter related to worker's compensation claim Instructions: ED Contusion, Upper Extremity Prescriptions: No Action amoxicillin-pot clavulanate [amoxicillin-pot clavulanate] 875 MG tablet 875 mg PO Q12H Qty: 10 RF: 0 Primary Care Provider: Care Physician,No Primary Referrals: Corporate,Care [GROUP OF PHYSICIANS] - 1 Week if not improving Care Physician,No Primary [Primary Care Provider] - Activity Restrictions/Additional Instructions: Ice and elevate your hand to decrease pain and swelling. Motrin or Advil for pain and swelling. Follow-up with corporate care if not improving. Disposition Disposition: Home, Self Care
[2021-09-15] MEDS: Ibuprofen 600 MG Tablet PO (03:45)
--- NOTE | 2021-09-16 02:30 | ED.RN ---
CHECKED THE PATIENTS CHART FOR ERICK
== END 2021-09-15 03:46 | disposition home or self-care (01) ==
PROVIDERS: Emergency Provider Emergency Medicine; Visit Provider Emergency Medicine
DX: S60.221A Contusion of right hand, initial encounter (principal); F17.210 Nicotine dependence, cigarettes, uncomplicated; W22.8XXA Striking against or struck by other objects, initial encounter; Y93.89 Activity, other specified; Y99.0 Civilian activity done for income or pay; Y92.89 Other specified places as the place of occurrence of the external cause
CPT/HCPCS: 73130; 99283

== ENCOUNTER 2023-09-29 09:42 | Emergency (ER) | payer BC, SELFPAY ==
[2023-09-29 09:42] VITALS: BP 109/66; PULSE 104; RESP 16; TEMP 36.1; O2SAT 100; BMI 27.3
--- NOTE | 2023-09-29 10:18 | CT_ITS ---
STUDY: CT ABDOMEN AND PELVIS WITHOUT CONTRAST REASON FOR EXAM: Female, 33 years old. Right flank pain RADIATION DOSAGE (If Supplied By Facility): CTDIvol = ( 8.86 ) mGy, DLP = ( 440.54 ) mGycm TECHNIQUE: Transaxial images were obtained from the dome of the diaphragm to the symphysis pubis without oral contrast, and without intravenous contrast. Sagittal and coronal images were reconstructed. Individualized dose optimization techniques were used for this CT. COMPARISON: None. FINDINGS: The visualized lung bases are unremarkable. The visualized portions of the heart are within normal limits. Normal liver. Normal gallbladder and extrahepatic biliary system. Normal spleen. Normal pancreas. Normal bilateral adrenal glands. Minimal degree of right perinephric stranding. No obstructive uropathy is seen. A tiny air bubble is seen along the anterior aspect of the urinary bladder. Normal left kidney. Normal visualized stomach. Normal small intestine. Normal colon. The appendix is visualized and appears normal. Normal abdominal aorta. Normal inferior vena cava. Normal retroperitoneum. Normal urinary bladder. Minimal amount of free fluid is seen in the cul-de-sac. This may be related to the patient''s menstrual phase. Normal abdominal wall. Disc space narrowing and degeneration at the L5-S1 level. CT/Abdomen/Pelvis without Cont IMPRESSION: Mild degree of right perinephric stranding although no evidence of obstructive uropathy at this time. Minimal amount of free fluid is seen in the pelvis. Electronically Signed: Noman Lion MD at 11:40 EDT ,
[2023-09-29 10:45] LABS: Absolute Lymphocyte Count 1.29 X10^3/uL (0.83-4.51); Absolute Neutrophil Count 8.4 X10^3/uL (2.0-7.7); Basophil# 0.01 X10^3/uL; Basophil% 0.1 % (0-1); Eosinophil# 0.02 X10^3/uL; Eosinophils% 0.2 % (0-5); Hematocrit 41.6 % (37-47); Hemoglobin 13.4 g/dL (12.0-15.0); Lymphocyte # 1.29 X10^3/ul (0.83-4.51); Lymphocyte % 12.2 % (19-41); Mean Corp Hgb Conc 32.2 g/dL (32-36); Mean Corpuscular Hgb 31.2 pg (27.0-32.0); Mean Corpuscular Volume 96.7 fL (81-99); Mean Platelet Vol. 10.9 fl (6.2-12.0); Monocyte% 7.6 % (0-10); NRBC Flagged by Analyzer 0 % (0-5); Neutrophil # 8.39 X10^3/uL (2.7-7.7); Neutrophil % 79.6 % (47-70); Platelet Count 162 K/mm3 (150-450); RBC Distribution Width CV 12.7 % (11.6-14.6); RBC Distribution Width SD 45.6 fl (35.1-43.9); White Blood Count 10.5 K/mm3 (4.4-11.0)
[2023-09-29] MEDS: Ketorolac 30 MG/ML Syringe IV (10:47)
[2023-09-29] MEDS: 0.9% Normal Saline (1000mL) 1,000 ML 150 ML IV (10:48)
[2023-09-29] MEDS: Ondansetron 4 MG/2 ML Vial IV (10:48)
[2023-09-29 10:51] LABS: Internal QC Validated? YES +Cl - CLEAR BKGD; Pregnancy, Serum, hCG Quali. NEGATIVE Negative
[2023-09-29 10:55] LABS: Anion Gap 3 (5-15); BUN 7 mg/dL (7-18); BUN/Creat Ratio 10.7 RATIO (10-20); Calcium,Total 9.1 mg/dL (8.5-10.1); Chloride 103 mmol/L (98-107); Creatinine, Serum 0.66 mg/dL (0.55-1.02); EST Glomerular Filtration Rate 112 mL/min (>60); Est Glom Filt Rate - Afr Amer 135 mL/min (>60); Estimated Creatinine Clearance 116.05 ml/min; Glucose 97 mg/dL (74-106); Potassium 3.7 mmol/L (3.5-5.1); Sodium Level 135 mmol/L (136-145)
[2023-09-29 11:41] LABS: Mucous, Urine 0 SEEN /hpf (<or=2+)
[2023-09-29 11:42] VITALS: BP 101/53; PULSE 93; RESP 16; TEMP 36.8; O2SAT 96
[2023-09-29 11:45] LABS: Color, Urine Yellow (Yellow); Glucose, Dipstick Normal (Normal); Ketone-Dipstick Negative (Negative); Leukocyte Esterase-Dipstick 100 /ul (Negative); Nitrite-Dipstick Positive (Negative); Occult Blood-Urine 150 /ul (Negative); Protein-Dipstick 30 mg/dl (Negative); Specific Gravity, Urine 1.005 (1.002-1.030); Urine Bilirubin Dipstick Negative (Negative); Urine Clarity Cloudy (Clear); Urine Urobilinogen Normal (Normal)
[2023-09-29 11:51] LABS: Bacteria 4+ /hpf (None Seen); Red Blood Cells-Urine 0-5 SEEN /hpf (0-5); Squamous Epithelial Cells - UA 0-5 SEEN /hpf (5-10); White Blood Cells 10-25 SEEN /hpf (0-5)
[2023-09-29] MEDS: Smz/Tmp Ds Tablet 1 TABLET PO (12:33)
--- NOTE | 2023-09-29 12:35 | EDS_ITS ---
HPI History of Present Illness Chief Complaint: Flank Pain PFSH PFSH Medical History no medical history Home Medications amoxicillin 875 mg-potassium clavulanate 125 mg tablet 875 mg (0.875 x 875-125 mg) PO Q12H #10 TABLETS 06/07/21 [Rx Last Taken Unknown] sulfamethoxazole 800 mg-trimethoprim 160 mg tablet (Bactrim DS) 1 tab PO BID #20 tabs 09/29/23 [Rx Last Taken Unknown] Allergy/AdvReac Type Severity Reaction Status Date / Time No Known Allergies Allergy Verified 09/29/23 09:43 Social History household members: significant other Smoking Status: Current every day smoker tobacco type: cigarettes alcohol intake: current alcohol intake frequency: other substance use type: does not use EXAM Physical Exam Const Vital Signs: 09/29/23 09:42 09/29/23 11:42 Temperature 97 F L 98.3 F Temperature Source Temporal Temporal Pulse Rate 104 H 93 Respiratory Rate 16 16 Blood Pressure 109/66 101/53 L Blood Pressure Mean 80 69 Pulse Ox 100 96 Oxygen Delivery Method Room Air Room Air [facility] Lab Data Labs: Laboratory Results - last 24 hr 09/29/23 09/29/23 10:35 11:30 WBC 10.5 RBC 4.30 Hgb 13.4 Hct 41.6 MCV 96.7 MCH 31.2 MCHC 32.2 RDW Std Deviation 45.6 H RDW Coeff of [place] 12.7 Plt Count 162 MPV 10.9 Immature Gran % (Auto) 0.300 Neut % (Auto) 79.6 H Lymph % (Auto) 12.2 L [place] % (Auto) 7.6 Eos % (Auto) 0.2 Baso % (Auto) 0.1 Absolute Neuts (auto) 8.4 H Absolute Lymphs (auto) 1.29 Nucleated RBC % 0 Sodium 135 L Potassium 3.7 Chloride 103 Carbon Dioxide 29.0 Anion Gap 3 L BUN 7 Creatinine 0.66 Estim Creat Clear Calc 116.05 Est GFR (MDRD) Af Amer 135 Est GFR (MDRD) Non-Af 112 BUN/Creatinine Ratio 10.7 Glucose 97 Calcium 9.1 Serum , Qual NEGATIVE Urine Color Yellow Urine Clarity Cloudy Urine pH 7.0 Ur Specific [place] 1.005 Urine Protein 30 H Urine Glucose (UA) Normal Urine Ketones Negative Urine Occult Blood 150 H Urine Nitrite Positive H Urine Bilirubin Negative Urine Urobilinogen Normal Ur Leukocyte Esterase 100 H Urine RBC 0-5 SEEN Urine WBC 10-25 SEEN Ur Squamous Epith Cells 0-5 SEEN Urine Bacteria 4+ Urine Mucus 0 SEEN Radiography Diagnostic Testing: Clinical Impression(s) from Imaging Studies Abdomen/Pelvis CT 09/29/23 10:18 IMPRESSION: Mild degree of right perinephric stranding although no evidence of obstructive uropathy at this time. Minimal amount of free fluid is seen in the pelvis. Electronically Signed: Noman Lion MD at 11:40 EDT , Discharge Plan Triage Chief Complaint: Flank Pain ED Provider: Sangeetha Blake Dx/Rx/DC Orders Clinical Impression: Pyelonephritis Instructions: ED Pyelonephritis, Female (Adult) Prescriptions: New sulfamethoxazole-trimethoprim [Bactrim DS] 800-160 mg tablet 1 tab PO BID Qty: 20 0RF No Action amoxicillin-pot clavulanate [amoxicillin-pot clavulanate] 875 MG tablet 875 mg PO Q12H Qty: 10 0RF Primary Care Provider: Care Physician,No Primary Referrals: Kay Ocampo MD [Med Staff - Active Staff] - As Needed Care Physician,No Primary [Primary Care Provider] - Disposition Disposition: Home, Self Care
--- NOTE | 2023-09-29 12:35 | EX.ED.DYSGE1 ---
HPI History of Present Illness Chief Complaint: Flank Pain Informant: patient Onset/Context/Timing Onset: Days (3 days) Context: Gradual Onset Current Severity: Moderate Maximum Severity: Moderate Narrative Narrative: Patient presents with 3-day history of right flank pain and nausea. She believes she had a fever last night but did not measure her temperature. She denies dysuria but does have slight frequency. She has a history of back pain but states this feels different. She had normal bowel movements. She has had a prior tubal ligation. PFSH PFS Medical History (Updated 09/29/23 @ 16:[address] Sangeetha Blake MD) Back pain Medical History no medical history Home Medications amoxicillin 875 mg-potassium clavulanate 125 mg tablet 875 mg (0.875 x 875-125 mg) PO Q12H #10 TABLETS 06/07/21 [Rx Last Taken Unknown] sulfamethoxazole 800 mg-trimethoprim 160 mg tablet (Bactrim DS) 1 tab PO BID #20 tabs 09/29/23 [Rx Last Taken Unknown] Allergy/AdvReac Type Severity Reaction Status Date / Time No Known Allergies Allergy Verified 09/29/23 09:43 Social History household members: significant other Smoking Status: Current every day smoker tobacco type: cigarettes alcohol intake: current alcohol intake frequency: other substance use type: does not use ROS ROS ED Constitutional Constitutional ED: Reports fever(s) and subjective; Denies chills Eyes Eyes: Denies change in vision or discharge from eye(s) ENT ENT ED: Denies discharge from eye(s), rhinorrhea or sore throat Cardiovascular Cardiovascular: Denies chest pain Respiratory/Chest Respiratory/Chest: Denies cough or dyspnea Gastrointestinal Gastrointestinal: Reports abdominal pain and nausea; Denies diarrhea or vomiting Genitourinary Genitourinary ED: Reports urinary frequency; Denies dysuria Musculoskeletal Musculoskeletal: Denies back pain or extremity pain Integumentary Denies Abrasions or rash Neurologic Neurologic: Denies headache(s) or weakness Psychiatric Psychiatric: Denies anxiety or depression Allergic/Immunologic Allergic/Immunologic ED: Denies lip swelling or urticaria EXAM Physical Exam Const Vital Signs: 09/29/23 09:42 09/29/23 11:42 09/29/23 13:01 Temperature 97 F L 98.3 F Temperature Source Temporal Temporal Pulse Rate 104 H 93 91 Respiratory Rate 16 16 18 Blood Pressure 109/66 101/53 L 97/49 L Blood Pressure Mean 80 69 65 Pulse Ox 100 96 97 Oxygen Delivery Method Room Air Room Air Positive well nourished and well developed General Appearance ED: well developed HEENT Reports moist mucous membranes Eyes EOMs intact bilaterally Chest Wall inspection of chest normal and palpation of chest normal Resp normal respiratory effort and clear to auscultation bilaterally Cardio regular rate and regular rhythm GI GI Narrative: Abdomen is soft and no reproducible tenderness. Back/Spine General Back: CVA tenderness right Extremity normal to inspection Neuro oriented x3 and no sensory deficits noted Motor Exam: strength 5/5 throughout Psych mental status grossly normal Skin no rashes or lesions noted MDM MDM MDM Narrative Medical decision making narrative: IV line established. Labwork obtained to evaluate for leukocytosis, anemia, and electrolyte derangement. Urinalysis obtained to evaluate for infection/hematuria. CT flank obtained to evaluate for possible renal stone, ovarian cyst, appendicitis. Patient given Toradol, Zofran, and IV fluids here. History & Record Review Discussion w/independent historian: Patient Lab Data Attestation: I reviewed the patient's lab results. Labs: Laboratory Results - last 24 hr 09/29/23 09/29/23 10:35 11:30 WBC 10.5 RBC 4.30 Hgb 13.4 Hct 41.6 MCV 96.7 MCH 31.2 MCHC 32.2 RDW Std Deviation 45.6 H RDW Coeff of [place] 12.7 Plt Count 162 MPV 10.9 Immature Gran % (Auto) 0.300 Neut % (Auto) 79.6 H Lymph % (Auto) 12.2 L [place] % (Auto) 7.6 Eos % (Auto) 0.2 Baso % (Auto) 0.1 Absolute Neuts (auto) 8.4 H Absolute Lymphs (auto) 1.29 Nucleated RBC % 0 Sodium 135 L Potassium 3.7 Chloride 103 Carbon Dioxide 29.0 Anion Gap 3 L BUN 7 Creatinine 0.66 Estim Creat Clear Calc 116.05 Est GFR (MDRD) Af Amer 135 Est GFR (MDRD) Non-Af 112 BUN/Creatinine Ratio 10.7 Glucose 97 Calcium 9.1 Serum , Qual NEGATIVE Urine Color Yellow Urine Clarity Cloudy Urine pH 7.0 Ur Specific [place] 1.005 Urine Protein 30 H Urine Glucose (UA) Normal Urine Ketones Negative Urine Occult Blood 150 H Urine Nitrite Positive H Urine Bilirubin Negative Urine Urobilinogen Normal Ur Leukocyte Esterase 100 H Urine RBC 0-5 SEEN Urine WBC 10-25 SEEN Ur Squamous Epith Cells 0-5 SEEN Urine Bacteria 4+ Urine Mucus 0 SEEN Radiography Diagnostic Testing: Clinical Impression(s) from Imaging Studies Abdomen/Pelvis CT 09/29/23 10:18 IMPRESSION: Mild degree of right perinephric stranding although no evidence of obstructive uropathy at this time. Minimal amount of free fluid is seen in the pelvis. Electronically Signed: Noman Lion MD at 11:40 EDT , Treatment and Re-Evaluation :: CBC reveals white count of 10.5 with 79% neutrophils. Hemoglobin is 13.4. Chemistry studies unremarkable. test is negative. Urinalysis is positive for nitrites with 10-25 white cells and 4+ bacteria. CT flank reveals mild degree of right perinephric stranding with no evidence of obstructive uropathy. Minimal amount of free fluid in the pelvis. On repeat evaluation patient resting more comfortably. She will be given 10-day course of Bactrim to treat pyelonephritis. Return instructions were provided. Discharge Plan Triage Chief Complaint: Flank Pain ED Provider: Sangeetha Blake Dx/Rx/DC Orders Clinical Impression: Pyelonephritis Instructions: ED Pyelonephritis, Female (Adult) Prescriptions: New sulfamethoxazole-trimethoprim [Bactrim DS] 800-160 mg tablet 1 tab PO BID Qty: 20 0RF No Action amoxicillin-pot clavulanate [amoxicillin-pot clavulanate] 875 MG tablet 875 mg PO Q12H Qty: 10 0RF Primary Care Provider: Care Physician,No Primary Referrals: Kay Ocampo MD [Med Staff - Active Staff] - As Needed Care Physician,No Primary [Primary Care Provider] - Disposition Disposition: Home, Self Care Discharge Date/Time: 09/29/23 13:04
[2023-09-29 13:01] VITALS: BP 97/49; PULSE 91; RESP 18; O2SAT 97
== END 2023-09-29 13:04 | disposition home or self-care (01) ==
PROVIDERS: Emergency Provider Emergency Medicine; Visit Provider Emergency Medicine
DX: N12 Tubulo-interstitial nephritis, not specified as acute or chronic (principal); R35.0 Frequency of micturition; F17.210 Nicotine dependence, cigarettes, uncomplicated
CPT/HCPCS: 74176; 80048; 81001; 84703; 85025; 96361; 96374; 96375; 99283; J7030; J2405